=== PATIENT | female | born 1990 | race Two or more races ===

== ENCOUNTER 2018-05-30 10:33 | Emergency (ER) | payer OTHER ==
[2018-05-30 11:55] VITALS: BP 97/64
--- NOTE | 2018-05-30 12:13 | EDPHY ---
H & P Time Seen by Provider: 05/30/18 10:48 HPI/ROS: CHIEF COMPLAINT: "Bad menstrual cramps" HISTORY OF PRESENT ILLNESS: 27-year-old female arrives via ambulance from work complaining of suprapubic pain consistent with menstrual cramping. Prior history of similar. Menstrual period started this morning. She was given 50 mcg of pre-hospital intranasal fentanyl and now states that she is asymptomatic when I examine her. No back or flank pain. No trauma. No dysuria hematuria increased frequency. No vomiting. PRIMARY CARE PROVIDER: REVIEW OF SYSTEMS: 10 systems reviewed and negative with the exception of the elements mentioned in the history of present illness PAST MEDICAL & SURGICAL HISTORY: No pertinent medical or surgical history SOCIAL HISTORY: Nonsmoker PHYSICAL EXAM (Prior to examination, patient consented to physical exam, hands were washed and my usual and customary physical exam procedures followed) 1) GENERAL: Well-developed, well-nourished, alert and oriented. Appears to be in no acute distress. 2) HEAD: Normocephalic, atraumatic 3) HEENT: Pupils equal, round, reactive to light bilaterally. Sclera anicteric. 4) NECK: Full range of motion, no meningeal signs. 5) LUNGS: Clear auscultation bilaterally, no wheezes, no rhonchi, no retractions. 6) HEART: Regular rate and rhythm, no murmur, no heave, no gallop. 7) ABDOMEN: No guarding, no rebound, no focal tenderness, negative McBurney's, negative Lemon's, negative Rovsing's, negative peritoneal sign, unable to elicit any abdominal pain 8) MUSCULOSKELETAL: Moving all extremities, no focal areas of tenderness, no obvious trauma. No peripheral edema or discoloration. 9) BACK: No CVA tenderness, no midline vertebral tenderness, no fluctuance, no step-off, no obvious trauma, no visual or palpable abnormality. 10) SKIN: No rash, no petechiae. 11) Psychiatric: Patient is oriented X 3, there is no agitation. DIFFERENTIAL DIAGNOSIS: My differential diagnosis includes, but is not limited to, acute appendicitis, acute cholecystitis, bowel obstruction, acute pancreatitis, ovarian torsion, ectopic , gastritis and urinary tract infection. The patient understands that this diagnosis is provisional and can never be 100% accurate. This is a partial list of diagnoses considered. These considerations are based on history, physical exam, past history and reassessment. Smoking Status: Never smoked Constitutional: Initial Vital Signs Temperature (C) 36.6 C 05/30/18 10:41 Heart Rate 77 05/30/18 10:41 Respiratory Rate 18 05/30/18 10:41 Blood Pressure 106/73 05/30/18 10:41 O2 Sat (%) 100 05/30/18 10:41 O2 Delivery Mode Room Air Allergies/Adverse Reactions: No Known Allergies Allergy (Unverified 05/30/18 10:40) Home Medications: Medication Instructions Recorded Hydrocodone/APAP 5/325 [Mobile 1 tab PO Q6 PRN #7 tab 05/30/18 5/325 (RX)] MDM/Departure - MDM Imaging Results: Imaging Impressions Pelvic/Renal Ultrasound 05/30/18 10:47 Impression: Corpus luteum cyst in the left adnexa. Otherwise unremarkable study. Images reviewed myself ED Course/Re-evaluation: 12:13 p.m.: Re-evaluation. Patient remains asymptomatic in the ER. She is sitting upright, smiling laughing, eating food. Doubt acute surgical abdominal pathology. Doubt ovarian torsion. Doubt acute appendicitis. Doubt ectopic in the presence of negative test. Plan will be discharge home. Given OBGYN follow-up information as well as small prescription for Mobile. Given my usual and customary abdominal precautions instructions. She feels comfortable being discharged. Care of patient under supervision of secondary supervising physician Dr Stokes - Depart Disposition: Home, Routine, Self-Care Clinical Impression: Menstrual cramp Condition: Good Instructions: Premenstrual Syndrome (ED) Additional Instructions: Seek immediate medical attention if you develop new or worsening symptoms, if you develop fevers, chills, inability to tolerate oral intake or any other symptoms that concerns you. Prescriptions: Hydrocodone/APAP 5/325 [Mobile 5/325 (RX)] 1 tab PO Q6 PRN #7 tab PRN Reason: Pain, Severe Referrals: Dominguez Enamorado MD [Medical Doctor] - 2-3 days, if not improved
== END 2018-05-30 12:31 | disposition home or self-care (01) ==
DX: N94.6 Dysmenorrhea, unspecified (principal); N83.12 Corpus luteum cyst of left ovary